=== PATIENT | male | born 1970 | race Caucasian/White ===

== ENCOUNTER → 2022-10-21 | Outpatient (CLI) | payer OTHER | LOC: LAB 10:10 → LAB SHORT 10:10 | DX: Z12.11 Encounter for screening for malignant neoplasm of colon (principal); G47.30 Sleep apnea, unspecified; E83.118 Other hemochromatosis; N25.9 Disorder resulting from impaired renal tubular function, unspecified | CPT/HCPCS: 85651 ==

== ENCOUNTER 2023-04-23 18:00 | Emergency (ER) | payer OTHER ==
[~2023-04-23] VITALS: Ht 180.3 cm; Wt 104.3 kg
[2023-04-23 18:30] LABS: BASOPHILS ABSOLUTE AUTO 0.15 K/mm3 (0.00-0.23); BASOPHILS PERCENT AUTO 1 % (0-2); EOSINOPHILS ABSOLUTE AUTO 0.37 K/mm3 (0.00-0.68); EOSINOPHILS PERCENT AUTO 3 % (0-6); Hematocrit 53.1 % (37.0-53.0); IMMATURE GRAN ABSOLUTE AUTO 0.03 K/mm3 (0.00-0.10); IMMATURE GRAN PERCENT AUTO 0 % (0-1); LYMPHOCYTES ABSOLUTE AUTO 2.65 K/mm3 (0.84-5.20); LYMPHOCYTES PERCENT AUTO 22 % (21-46); MONOCYTES ABSOLUTE AUTO 1.18 K/mm3 (0.16-1.47); MONOCYTES PERCENT AUTO 10 % (4-13); Mean Corpuscular HGB Conc 33.9 g/dL (31.5-36.5); Mean Corpuscular Volume 86 fL (80-100); Mean Platelet Volume 8.6 fL (9.1-12.4); NEUTROPHILS ABSOLUTE AUTO 7.44 K/mm3 (1.96-9.15); NEUTROPHILS PERCENT AUTO 63 % (41-73); Platelet Count 317 K/mm3 (150-400); RDW Coefficient Variation 13.6 % (11.7-14.2); RDW Standard Deviation 42.2 fL (35.1-46.3); White Blood Cell Count 11.82 K/mm3 (4.00-11.30)
[2023-04-23 18:51] LABS: Albumin, Blood 3.6 g/dL (3.4-5.0); Bilirubin, Total 0.6 mg/dL (0.1-1.0); Bun/Creatinine Ratio 13.2 (12.0-20.0); Calcium, Blood 9.9 mg/dL (8.5-10.1); Creatinine, Blood 1.21 mg/dL (0.60-1.20); Globulin, Blood 3.6 g/dL (2.2-4.0); Potassium, Blood 3.5 mmol/L (3.5-5.5); Total Protein, Blood 7.2 g/dL (6.4-8.2)
[2023-04-23] MEDS ORDERED: Nitroglycerin 0.4 MG SUBL SL ONE ×2 (21:20→23:30)
[2023-04-23] MEDS ORDERED: Aspirin 325 MG Tab PO ONE (21:20)
[2023-04-23] MEDS ORDERED: Acetaminophen 500 MG Tab PO ONE (23:30)
[2023-04-23 23:45] VITALS: BP 121/76
== END 2023-04-23 23:40 | disposition home or self-care (01) ==
LOC: ER 18:00
PROVIDERS: Emergency Medicine
DX: I20.9 Angina pectoris, unspecified (principal); Z88.0 Allergy status to penicillin; Z82.49 Family history of ischemic heart disease and other diseases of the circulatory system
CPT/HCPCS: 71046; 80053; 84484; 85025; 85379; 99285-25; A9270